=== PATIENT | female | born 1975 | race African-American/Black ===

== ENCOUNTER 2018-06-29 22:11 | Emergency (ER) | payer MEDICAID ==
[~2018-06-29] VITALS: Ht 167.6 cm; Wt 77.0 kg
[2018-06-29] MEDS ORDERED: KETOROLAC 60MG/2ML VIAL IM ONE (23:45)
[2018-06-30] MEDS ORDERED: KETOROLAC 30MG/ML VIAL IV ONE (00:30)
[2018-06-30] MEDS ORDERED: CEFAZOLIN SODIUM 1000MG/VIAL IM ONE (04:30)
[2018-06-30] MEDS ORDERED: CEFAZOLIN 1000MG PREMIX 50 ML IV NR (04:45)
[2018-06-30] MEDS ORDERED: KETOROLAC 60MG/2ML VIAL IM ONE (05:15)
[2018-06-30 06:10] VITALS: BP 123/54
== END 2018-06-30 06:10 | disposition home or self-care (01) ==
LOC: ER 22:11
DX: S02.652A Fracture of angle of left mandible, initial encounter for closed fracture (principal); S02.602A Fracture of unspecified part of body of left mandible, initial encounter for closed fracture; Z98.890 Other specified postprocedural states; Y04.0XXA Assault by unarmed brawl or fight, initial encounter; Y93.89 Activity, other specified; Y92.018 Other place in single-family (private) house as the place of occurrence of the external cause
CPT/HCPCS: 70486; 81025; 96365; 96372; 96375; 99284; J0690; J1885

== ENCOUNTER 2022-01-29 16:57 | Emergency (ER) | payer MEDICAID ==
[~2022-01-29] VITALS: Ht 170.2 cm; Wt 69.0 kg
[2022-01-29 17:31] VITALS: BP 128/93
[2022-01-29 22:46] LABS: CHLORIDE 102 mEq/L (98-107)
[2022-01-29 22:50] LABS: EOSINOPHILS % 3.4 % (0.0-5.0); HEMOGLOBIN. 13.8 g/dL (12.0-16.0); LYMPHOCYTES % 48.2 % (20.0-50.0); MEAN CORPUSCULAR HEMOGLOBIN 27.8 pg (28.0-32.0); MEAN CORPUSCULAR VOLUME 84.4 fL (81.0-99.0); MEAN PLATELET VOLUME 7.8 fl (7.4-10.4); NEUTROPHILS % 40.4 % (40.0-76.0); PLATELET 337 x1000/uL (130-400); RED BLOOD CELL COUNT 4.98 mill/uL (4.2-5.4); RED CELL DISTRIBUTION WIDTH 13.6 % (11.6-14.6)
== END 2022-01-29 23:55 | disposition home or self-care (01) ==
LOC: ER 16:57
DX: Z00.00 Encounter for general adult medical examination without abnormal findings (principal); Z98.890 Other specified postprocedural states
CPT/HCPCS: 36415; 80053; 84443; 85025; 99283